=== PATIENT | male | born 1970 | race Asian ===

== ENCOUNTER 2021-01-01 13:42 | Emergency (ER) | payer OTHER ==
[~2021-01-01] VITALS: Ht 172.7 cm; Wt 93.4 kg
[2021-01-01] MEDS ORDERED: PLAV1TAB2 PO (14:00)
[2021-01-01] MEDS ORDERED: GNP250TA9 PO (14:00)
[2021-01-01] MEDS ORDERED: LATU20TA PO (14:00)
[2021-01-01] MEDS ORDERED: ATOR1TAB19 PO (14:00)
[2021-01-01] MEDS ORDERED: LISI-898 PO (14:00)
[2021-01-01] MEDS ORDERED: ASPI81TA26 PO (14:00)
[2021-01-01] MEDS ORDERED: METF-839 PO (14:00)
[2021-01-01 15:23] LABS: HEMOGLOBIN 17.4 g/dl (13.5-17.5); MEAN CORPUSCULAR HEMOGLOBIN 25.8 pg (27.0-33.0); MEAN CORPUSCULAR HGB CONC 33.5 g/dl (32.0-36.5); PLATELET COUNT, AUTOMATED 275 10^3/uL (150-450); RED BLOOD COUNT 6.75 10^6/uL (4.30-6.10); WHITE BLOOD COUNT 7.7 10^3/uL (4.0-10.0)
[2021-01-01 16:05] LABS: ACETAMINOPHEN LEVEL < 2.0 UG/ML (10.0-30.0); ALBUMIN 3.1 GM/DL (3.2-5.2); ALT/SGPT 52 U/L (12-78); BILIRUBIN,DIRECT 0.1 MG/DL (0.0-0.2); BILIRUBIN,TOTAL 0.5 MG/DL (0.2-1.0); BLOOD UREA NITROGEN 19 MG/DL (7-18); CALCIUM LEVEL 8.7 MG/DL (8.5-10.1); CARBON DIOXIDE LEVEL 26 MEQ/L (21-32); CHLORIDE LEVEL 109 MEQ/L (98-107); CREATININE FOR GFR 1.31 MG/DL (0.70-1.30); ETHYL ALCOHOL (ETHANOL) < 0.003 % (0.000-0.010); GLOMERULAR FILTRATION RATE > 60.0 (>56); GLUCOSE, FASTING 137 MG/DL (70-100); SALICYLATE LEVEL < 1.7 MG/DL (5.0-30.0); SODIUM LEVEL 139 MEQ/L (136-145); TOTAL PROTEIN 6.6 GM/DL (6.4-8.2)
[2021-01-01] MEDS ORDERED: XANA0.25 PO (16:13)
[2021-01-01 16:28] VITALS: BP 156/78
[2021-01-01 16:40] LABS: AMPHETAMINES LEVEL URINE NEGATIVE (NEGATIVE); BARBITURATES URINE NEGATIVE (NEGATIVE); BENZODIAZEPINES URINE NEGATIVE (NEGATIVE); CANNABINOIDS URINE POSITIVE (NEGATIVE); COCAINE METABOLITE URINE NEGATIVE (NEGATIVE); METHADONE URINE NEGATIVE (NEGATIVE); OPIATES URINE NEGATIVE (NEGATIVE); PHENCYCLIDINE URINE NEGATIVE (NEGATIVE)
== END 2021-01-01 16:25 | disposition home or self-care (01) ==
LOC: M ED 13:42
DX: F43.0 Acute stress reaction (principal); E11.9 Type 2 diabetes mellitus without complications; Z88.1 Allergy status to other antibiotic agents; Z79.899 Other long term (current) drug therapy; Z79.82 Long term (current) use of aspirin

== ENCOUNTER 2022-06-10 11:49 | Emergency (ER) | payer OTHER ==
[~2022-06-10] VITALS: Ht 172.7 cm; Wt 96.8 kg
[~2022-06-10 11:49] MED LIST: ASPE4PAD TOP; ASPI81TA26 PO; ATOR1TAB19 PO; CLOP75TA99 PO; GNP250TA9 PO; HYDR-3713 PO; LATU20TA PO; LISI5TAB11 PO; METF-839 PO; METH-1165 PO; XANA0.25 PO
[2022-06-10 13:40] LABS: BASO # 0.1 10^3/uL (0.0-0.2); BASO % 0.7 % (0.0-1.0); EOS # 0.1 10^3/uL (0.0-0.5); EOS % 1.6 % (0.0-3.0); LYMPH # 1.7 10^3/uL (1.5-5.0); LYMPH % 19.7 % (24.0-44.0); MEAN CORPUSCULAR HEMOGLOBIN 25.3 pg (27.0-33.0); MEAN CORPUSCULAR HGB CONC 33.2 g/dl (32.0-36.5); MEAN CORPUSCULAR VOLUME 76.3 fl (80.0-96.0); MONO # 0.7 10^3/uL (0.0-0.8); MONO % 8.4 % (2.0-8.0); NEUTROPHILS # 5.9 10^3/uL (1.5-8.5); NEUTROPHILS % 68.9 % (36.0-66.0); PLATELET COUNT, AUTOMATED 220 10^3/uL (150-450); WHITE BLOOD COUNT 8.6 10^3/uL (4.0-10.0)
[2022-06-10 13:41] LABS: HEMATOCRIT 59.1 % (42.0-52.0); HEMOGLOBIN 19.6 g/dl (13.5-17.5); RED BLOOD COUNT 7.75 10^6/uL (4.30-6.10)
[2022-06-10 14:05] LABS: BLOOD UREA NITROGEN 21 MG/DL (9-23); CARBON DIOXIDE LEVEL 21 MMOL/L (20-31); CHLORIDE LEVEL 110 MMOL/L (98-107); CK-MB VALUE MASS 4.7 NG/ML (<3.6); CREATININE FOR GFR 0.96 MG/DL (0.70-1.30); GLOMERULAR FILTRATION RATE > 60.0 (>56); GLUCOSE, FASTING 153 MG/DL (60-100); POTASSIUM SERUM 4.4 MMOL/L (3.5-5.1); SODIUM LEVEL 139 MMOL/L (136-145)
[2022-06-10 14:15] LABS: CPK CREATINE PHOSPHOKINASE 411 U/L (46-171); MB/CK RELATIVE INDEX 1.14 (< OR =4)
[2022-06-10] MEDS ORDERED: ISOVUE-370 76% 100ML VIAL As Ordered ONE (16:11)
[2022-06-10 17:26] LABS: ALBUMIN 3.4 G/DL (3.2-5.2); ALKALINE PHOSPHATASE 75 U/L (46-116); ALT/SGPT 46 U/L (7.0-40); AST/SGOT 33 U/L (<34); BILIRUBIN,DIRECT 0.1 MG/DL (<0.4); BILIRUBIN,TOTAL 0.8 MG/DL (0.3-1.2); TOTAL PROTEIN 6.4 G/DL (5.7-8.2)
[2022-06-10] MEDS ORDERED: METOPROLOL TART 50 MG TAB PO ONE (17:55)
[2022-06-10 17:59] VITALS: BP 160/116
[2022-06-10] MEDS ORDERED: ACETAMINOPHEN TAB 650MG DOSE (2X325MG) PO ONE (18:15)
[2022-06-10] MEDS ORDERED: CHLORTHALIDONE 25 MG TAB PO ONE (18:30)
[2022-06-10] MEDS ORDERED: ALPRAZolam 0.5 MG TAB PO ONE (18:30)
[2022-06-10 19:31] VITALS: BP 154/84
[2022-06-10] MEDS ORDERED: CHLO125TA PO (19:41)
== END 2022-06-10 19:56 | disposition home or self-care (01) ==
LOC: M ED 11:49
DX: R07.9 Chest pain, unspecified (principal); I10 Essential (primary) hypertension; F41.9 Anxiety disorder, unspecified; E11.9 Type 2 diabetes mellitus without complications; F12.10 Cannabis abuse, uncomplicated; Z86.79 Personal history of other diseases of the circulatory system; Z88.1 Allergy status to other antibiotic agents; Z79.02 Long term (current) use of antithrombotics/antiplatelets; Z79.811 Long term (current) use of aromatase inhibitors; Z79.4 Long term (current) use of insulin; Z79.899 Other long term (current) drug therapy
CPT/HCPCS: 36415; 71045; 71275; 80048; 80076; 82550; 82553; 84484; 85025; 93005; 93041; 94760; 99285; Q9967

== ENCOUNTER 2023-01-12 13:08 | Emergency (ER) | payer OTHER ==
[~2023-01-12] VITALS: Ht 172.7 cm; Wt 88.9 kg
[~2023-01-12 13:08] MED LIST changes: +CHLO125TA PO
[2023-01-12] MEDS ORDERED: NOXI1TAB PO (13:22)
[2023-01-12 16:17] LABS: BASO # 0.1 10^3/uL (0.0-0.2); BASO % 0.6 % (0.0-1.0); EOS # 0.2 10^3/uL (0.0-0.5); EOS % 2.8 % (0.0-3.0); HEMATOCRIT 49.5 % (42.0-52.0); HEMOGLOBIN 17.9 g/dl (13.5-17.5); LYMPH # 1.9 10^3/uL (1.5-5.0); LYMPH % 23.3 % (24.0-44.0); MEAN CORPUSCULAR HEMOGLOBIN 30.3 pg (27.0-33.0); MEAN CORPUSCULAR HGB CONC 36.2 g/dl (32.0-36.5); MEAN CORPUSCULAR VOLUME 83.8 fl (80.0-96.0); MONO # 0.7 10^3/uL (0.0-0.8); MONO % 8.1 % (2.0-8.0); NEUTROPHILS # 5.1 10^3/uL (1.5-8.5); NEUTROPHILS % 64.3 % (36.0-66.0); PLATELET COUNT, AUTOMATED 182 10^3/uL (150-450); RED BLOOD COUNT 5.91 10^6/uL (4.30-6.10)
[2023-01-12 16:30] LABS: INR 0.96; PARTIAL THROMBOPLASTIN TIME 24.9 SECONDS (24.8-34.2); PROTHROMBIN TIME 12.5 SECONDS (12.5-14.5)
[2023-01-12 16:47] LABS: ALBUMIN 3.7 G/DL (3.2-5.2); ALKALINE PHOSPHATASE 94 U/L (46-116); ALT/SGPT 51 U/L (7.0-40); AST/SGOT 25 U/L (<34); BILIRUBIN,DIRECT 0.1 MG/DL (<0.4); BILIRUBIN,TOTAL 0.8 MG/DL (0.3-1.2); BLOOD UREA NITROGEN 22 MG/DL (9-23); CALCIUM LEVEL 9.3 MG/DL (8.5-10.1); CARBON DIOXIDE LEVEL 20 MMOL/L (20-31); CHLORIDE LEVEL 109 MMOL/L (98-107); CK-MB VALUE MASS 2.2 NG/ML (<3.6); CREATININE FOR GFR 0.76 MG/DL (0.70-1.30); GLOMERULAR FILTRATION RATE > 60.0 (>56); GLUCOSE, FASTING 172 MG/DL (60-100); POTASSIUM SERUM 4.2 MMOL/L (3.5-5.1); SODIUM LEVEL 139 MMOL/L (136-145); TOTAL PROTEIN 6.5 G/DL (5.7-8.2)
[2023-01-12 16:49] LABS: THYROID STIMULATING HORMONE 1.286 uIU/ML (0.55-4.78)
[2023-01-12 16:50] LABS: CPK CREATINE PHOSPHOKINASE 106 U/L (46-171); FREE T4 0.98 NG/DL (0.89-1.76); MB/CK RELATIVE INDEX 2.07 (< OR =4)
[2023-01-12 17:54] LABS: CK-MB VALUE MASS 1.9 NG/ML (<3.6); MB/CK RELATIVE INDEX 1.91 (< OR =4)
[2023-01-12 18:28] LABS: APPEARANCE, URINE CLEAR (CLEAR); BACTERIA, URINE AUTO NEGATIVE (NEGATIVE); BILIRUBIN, URINE AUTO NEGATIVE (NEGATIVE); BLOOD, URINE BLOOD NEGATIVE (NEGATIVE); COLOR, URINE YELLOW (YELLOW); GLUCOSE, URINE (UA) AUTO 3+ mg/dL (NEGATIVE); KETONE, URINE AUTO NEGATIVE (NEGATIVE); LEUKOCYTE ESTERASE, URINE AUTO NEGATIVE (NEGATIVE); NITRITE, URINE AUTO NEGATIVE (NEGATIVE); PROTEIN, URINE AUTO 1+ mg/dL (NEGATIVE); RBC, URINE AUTO 0 /HPF (0-3); SPECIFIC GRAVITY URINE AUTO 1.025 (1.002-1.035); SQUAMOUS EPITHELIAL CELL UR AU 0 /HPF (0-6); UROBILINOGEN, URINE AUTO 0.2 mg/dL (0.0-2.0); WBC, URINE AUTO 0 /HPF (0-3)
[2023-01-12 20:32] VITALS: BP 131/80; TEMP 98.4; O2SAT 97
== END 2023-01-12 20:36 | disposition home or self-care (01) ==
LOC: M ED 13:08
DX: R51.9 Headache, unspecified (principal); M54.50 Low back pain, unspecified; I25.2 Old myocardial infarction; I45.9 Conduction disorder, unspecified; E11.9 Type 2 diabetes mellitus without complications; I10 Essential (primary) hypertension; F17.200 Nicotine dependence, unspecified, uncomplicated; Z88.1 Allergy status to other antibiotic agents; Z79.82 Long term (current) use of aspirin; Z79.02 Long term (current) use of antithrombotics/antiplatelets; Z79.811 Long term (current) use of aromatase inhibitors; Z79.4 Long term (current) use of insulin; Z79.899 Other long term (current) drug therapy; R41.0 Disorientation, unspecified

== ENCOUNTER 2023-09-15 13:01 | Emergency (ER) | payer OTHER ==
[~2023-09-15] VITALS: Ht 172.7 cm; Wt 85.0 kg
[2023-09-15 13:01] VITALS: TEMP 97.1
[~2023-09-15 13:01] MED LIST changes: +NOXI1TAB PO
[2023-09-15 13:50] LABS: BASO % 0.5 % (0.0-1.0); EOS # 0.1 10^3/uL (0.0-0.5); EOS % 1.5 % (0.0-3.0); HEMATOCRIT 50.5 % (42.0-52.0); HEMOGLOBIN 17.9 g/dl (13.5-17.5); LYMPH # 1.2 10^3/uL (1.5-5.0); MEAN CORPUSCULAR HEMOGLOBIN 29.2 pg (27.0-33.0); MEAN CORPUSCULAR HGB CONC 35.4 g/dl (32.0-36.5); MEAN CORPUSCULAR VOLUME 82.5 fl (80.0-96.0); MONO # 0.7 10^3/uL (0.0-0.8); MONO % 8.2 % (2.0-8.0); NEUTROPHILS # 5.9 10^3/uL (1.5-8.5); NEUTROPHILS % 74.3 % (36.0-66.0); PLATELET COUNT, AUTOMATED 175 10^3/uL (150-450); RED BLOOD COUNT 6.12 10^6/uL (4.30-6.10); WHITE BLOOD COUNT 7.9 10^3/uL (4.0-10.0)
[2023-09-15 14:05] LABS: INR 0.9; PROTHROMBIN TIME 11.9 SECONDS (12.5-14.5)
[2023-09-15 14:09] LABS: CK-MB VALUE MASS 1.5 NG/ML (<3.6); LIPASE 36 U/L (12-53)
[2023-09-15 14:12] LABS: ALBUMIN 3.7 G/DL (3.2-5.2); ALKALINE PHOSPHATASE 114 U/L (46-116); ALT/SGPT 45 U/L (7.0-40); AST/SGOT 30 U/L (<34); BILIRUBIN,DIRECT 0.2 MG/DL (<0.4); BILIRUBIN,TOTAL 1.1 MG/DL (0.3-1.2); BLOOD UREA NITROGEN 24 MG/DL (9-23); CALCIUM LEVEL 9.5 MG/DL (8.5-10.1); CARBON DIOXIDE LEVEL 22 MMOL/L (20-31); CHLORIDE LEVEL 109 MMOL/L (98-107); CREATININE FOR GFR 1.06 MG/DL (0.70-1.30); GLOMERULAR FILTRATION RATE > 60.0 (>56); GLUCOSE, FASTING 177 MG/DL (60-100); POTASSIUM SERUM 4.2 MMOL/L (3.5-5.1); SODIUM LEVEL 141 MMOL/L (136-145); TOTAL PROTEIN 6.6 G/DL (5.7-8.2)
[2023-09-15 14:16] LABS: CPK CREATINE PHOSPHOKINASE 117 U/L (46-171); MB/CK RELATIVE INDEX 1.28 (< OR =4)
[2023-09-15 18:12] LABS: CK-MB VALUE MASS 1.2 NG/ML (<3.6)
[2023-09-15 18:15] LABS: MB/CK RELATIVE INDEX 1.15 (< OR =4)
[2023-09-15 18:30] VITALS: BP 126/81; O2SAT 98
== END 2023-09-15 18:43 | disposition home or self-care (01) ==
LOC: M ED 13:01
DX: R51.9 Headache, unspecified (principal); R06.02 Shortness of breath; R11.2 Nausea with vomiting, unspecified; R00.1 Bradycardia, unspecified; E11.9 Type 2 diabetes mellitus without complications; I25.2 Old myocardial infarction; I10 Essential (primary) hypertension; E78.5 Hyperlipidemia, unspecified; F41.9 Anxiety disorder, unspecified; F32.A Depression, unspecified; Z88.1 Allergy status to other antibiotic agents; Z79.82 Long term (current) use of aspirin; Z79.02 Long term (current) use of antithrombotics/antiplatelets; Z79.811 Long term (current) use of aromatase inhibitors; Z79.899 Other long term (current) drug therapy; Z79.4 Long term (current) use of insulin

== ENCOUNTER → 2023-12-08 | Outpatient (REF) | LOC: M LAB 09:54 | PROVIDERS: ATTEND Family Medicine | DX: Z02.1 Encounter for pre-employment examination (principal) ==